=== PATIENT | male | born 1940 | race Caucasian/White ===

== ENCOUNTER → 2018-04-19 | Outpatient (REF) | LOC: ZLAB.WCH 16:09 | DX: Z01.89 Encounter for other specified special examinations (principal) ==

== ENCOUNTER 2018-06-21 09:16 | Emergency (ER) | payer MEDICARE ==
[~2018-06-21] VITALS: Ht 177.8 cm; Wt 100.0 kg
[2018-06-21 09:19] VITALS: TEMP 97.8
[2018-06-21] MEDS ORDERED: MULTIPLE VITAMI1 CAP PO (09:25)
[2018-06-21] MEDS ORDERED: ASPIRIN 81M81 MG/TA2 PO (09:25)
[2018-06-21] MEDS ORDERED: SINEMET CR1 UDTAB.S1 PO (09:26)
[2018-06-21] MEDS ORDERED: NAMENDA XR 28MG PO (09:26)
[2018-06-21] MEDS ORDERED: KAPSPARGO SPRIN25 MG PO (09:26)
[2018-06-21] MEDS ORDERED: ARICEPT23 MG PO (09:26)
[2018-06-21] MEDS ORDERED: PRAVACHOL10 MG PO (09:27)
[2018-06-21] MEDS ORDERED: PRILOSEC 20MG20 MG PO (09:27)
[2018-06-21 09:32] LABS: BASO % 0.2 % (0.0-2.0); EOS % 0.2 % (0-4.0); GRAN # 9.5 (1.4-6.5); GRAN % 76.8 % (42.2-75.2); HEMATOCRIT 41.5 % (42.0-52.0); HEMOGLOBIN 14.2 g/dl (13.5-18.0); LYMPH # 1.4 (1.2-3.4); LYMPH % 11.5 % (20.0-51.0); MEAN CELL VOLUME 91 fl (80.0-100.0); MEAN CORPUSCULAR HEMOGLOBIN 31 pg (27.0-31.0); MEAN CORPUSCULAR HGB CONC 34 g/dl (33.0-37.0); MEAN PLATELET VOLUME 10.2 fl (7.4-10.4); MONO # 1.3 (0.1-0.6); MONO % 10.5 % (1.7-9.3); PLATELET COUNT 174 K/mm3 (130-400); RED BLOOD COUNT 4.55 M/mm3 (4.20-5.60); REDCELL DISTRIBUTION WIDTH-CV 12.3 % (11.5-14.5)
[2018-06-21 09:37] LABS: INR 1.1 (0.8-3.0); PROTHROMBIN TIME 12.2 SECONDS (9.7-12.8)
[2018-06-21 09:43] LABS: ALANINE AMINOTRANSFERASE 12 U/L (21-72); ALBUMIN 3.9 gm/dL (3.5-5.0); ALKALINE PHOSPHATASE 61 U/L (50-136); ANION GAP 9 mmol/L (7-16); AST,SGOT 32 U/L (15-37); BILIRUBIN,TOTAL 1.3 mg/dL (0.0-1.0); BLOOD UREA NITROGEN 32 mg/dL (9-20); CALCIUM 9.3 mg/dL (8.4-10.2); CARBON DIOXIDE 27 mmol/L (22-30); CHLORIDE 103 mmol/L (98-107); CREATININE, serum 1.99 mg/dL (0.66-1.25); GLUCOSE 154 mg/dL (74-106); POTASSIUM 4.5 mmol/L (3.4-5.0); SODIUM 139 mmol/L (137-145); TOTAL PROTEIN 7.5 gm/dL (6.4-8.2)
[2018-06-21 09:48] LABS: ACETAMINOPHEN < 10 ug/mL (10-30); ALCOHOL(ethanol),MEDICAL < 10 mg/dL; SALICYLATE < 1.0 mg/dL
[2018-06-21 09:54] LABS: TROPONIN-I 0.014 ng/mL (0.000-0.035)
[2018-06-21 10:34] LABS: COLLECTION METHOD CLEAN CATCH
[2018-06-21 10:45] LABS: MUCOUS Present /lpf; PH 5 (5-8); SQUAMOUS EPITHELIAL 0-2 /hpf; URINE APPEARANCE Clear; URINE BACTERIA None Seen /hpf; URINE BILIRUBIN Negative (NEGATIVE); URINE BLOOD Negative (NEGATIVE); URINE COLOR Yellow; URINE GLUCOSE Negative (NEGATIVE); URINE KETONE Negative (NEGATIVE); URINE LEUKOCYTE ESTERASE Negative (NEGATIVE); URINE NITRATE Negative (NEGATIVE); URINE PROTEIN(semi-quant) Negative (NEGATIVE); URINE UROBILINOGEN Negative (NEGATIVE)
[2018-06-21 12:08] VITALS: BP 149/77; PULSE 90
== END 2018-06-21 12:15 | disposition short-term general hospital (02) ==
LOC: COL.ER 09:16
PROVIDERS: Emergency Medicine
DX: R53.1 Weakness (principal); E86.0 Dehydration; I25.10 Atherosclerotic heart disease of native coronary artery without angina pectoris; Z95.5 Presence of coronary angioplasty implant and graft; Z79.82 Long term (current) use of aspirin
CPT/HCPCS: J7030

== ENCOUNTER → 2018-07-05 | Outpatient (REF) ==
[~2018-07-05] MED LIST: ARICEPT23 MG PO; ASPIRIN 81M81 MG/TA2 PO; KAPSPARGO SPRIN25 MG PO; MULTIPLE VITAMI1 CAP PO; NAMENDA XR 28MG PO; PRAVACHOL10 MG PO; PRILOSEC 20MG20 MG PO; SINEMET CR1 UDTAB.S1 PO
== END ==
LOC: ZLAB.WCH 16:20
DX: Z01.89 Encounter for other specified special examinations (principal)

== ENCOUNTER → 2018-08-02 | Outpatient (REF) ==
[2018-08-02 10:23] LABS: THYROID STIMULATING HORMONE 7.36 uIU/mL (0.465-4.680)
== END ==
LOC: ZLAB.WCH 09:39
PROVIDERS: Nurse Practitioner
DX: Z01.89 Encounter for other specified special examinations (principal)

== ENCOUNTER → 2018-08-02 | Outpatient (CLI) | payer MEDICARE | LOC: COL.VAS 10:30 | DX: I82.401 Acute embolism and thrombosis of unspecified deep veins of right lower extremity (principal) ==